=== PATIENT | female | born 1950 | race Caucasian/White ===

== ENCOUNTER → 2017-07-21 | Outpatient (CLI) | payer OTHER ==
[~2017-07-21] MED LIST: ALBU8.5H8 INH; ASPI-496 PO; ASPI-650 PO; DILT240C2 PO; DULO30CA2 PO; FURO20TA3 PO; OMEP20TA62 PO; POTA10TA6 PO; TRAZ50TA18 PO
== END | disposition home or self-care (01) ==
LOC: CFH 08:51
PROVIDERS: ATTEND Internal Medicine Cardiovascular Disease
DX: I08.3 Combined rheumatic disorders of mitral, aortic and tricuspid valves (principal); Q21.1 Atrial septal defect; I48.91 Unspecified atrial fibrillation
CPT/HCPCS: 93306

== ENCOUNTER 2017-10-29 09:35 | Emergency (ER) | payer OTHER ==
[~2017-10-29] VITALS: Ht 162.6 cm; Wt 80.4 kg
[2017-10-29 09:37] VITALS: BP 152/90
== END 2017-10-29 11:12 | disposition home or self-care (01) ==
LOC: ED 11:06
DX: G89.11 Acute pain due to trauma (principal); M25.511 Pain in right shoulder; K21.9 Gastro-esophageal reflux disease without esophagitis; X50.0XXA Overexertion from strenuous movement or load, initial encounter; Y93.89 Activity, other specified; Y92.89 Other specified places as the place of occurrence of the external cause; Y99.8 Other external cause status
CPT/HCPCS: 99284

== ENCOUNTER → 2018-05-31 | Outpatient (CLI) | payer MEDICARE, OTHER ==
[~2018-05-31] MED LIST changes: +TRAZ-136 PO; -TRAZ50TA18 PO
== END | disposition home or self-care (01) ==
LOC: CFH 14:35
PROVIDERS: ATTEND Nurse Practitioner Family
DX: S43.491A Other sprain of right shoulder joint, initial encounter (principal); M19.011 Primary osteoarthritis, right shoulder; M24.011 Loose body in right shoulder; M25.811 Other specified joint disorders, right shoulder; X58.XXXA Exposure to other specified factors, initial encounter; Y93.89 Activity, other specified; Y92.89 Other specified places as the place of occurrence of the external cause; Y99.8 Other external cause status

== ENCOUNTER → 2018-09-06 | Outpatient (CLI) | payer MEDICARE, OTHER ==
[~2018-09-06] MED LIST changes: -TRAZ-136 PO; +TRAZ50TA66 PO
== END | disposition home or self-care (01) ==
LOC: CFH 11:22
PROVIDERS: ATTEND Nurse Practitioner Family
DX: M47.897 Other spondylosis, lumbosacral region (principal); M48.55XA Collapsed vertebra, not elsewhere classified, thoracolumbar region, initial encounter for fracture; M99.13 Subluxation complex (vertebral) of lumbar region; M62.830 Muscle spasm of back
CPT/HCPCS: 72114

== ENCOUNTER → 2019-01-12 | Outpatient (CLI) | payer MEDICARE, OTHER ==
[2019-01-12 13:08] LABS: BASOPHILS # (AUTO) 0.02 x10^3/uL (0-0.1); BASOPHILS % (AUTO) 0 % (0-1); EOSINOPHILS # (AUTO) 0.01 x10^3/uL (0-0.4); EOSINOPHILS % (AUTO) 0 % (1-7); LYMPHOCYTES # (AUTO) 2.06 x10^3/uL (1-3.4); LYMPHOCYTES % (AUTO) 33 % (22-44); MD NO; MEAN CORPUSCULAR HEMOGLOBIN 29.5 pg (27.0-34.8); MEAN CORPUSCULAR HGB CONC 33.9 g/dL (32.4-35.8); MONOCYTES # (AUTO) 0.37 x10^3/uL (0.2-0.8); MONOCYTES % (AUTO) 6 % (2-9); NEUTROPHILS # (AUTO) 3.78 x10^3/uL (1.8-6.8); NEUTROPHILS % (AUTO) 60 % (42-75); PLATELET COUNT 235 x10^3/uL (130-400); RED BLOOD COUNT 5.06 x10^6/uL (3.82-5.3); RED CELL DISTRIBUTION WIDTH 13.5 % (9.6-15.2)
[2019-01-12 13:15] LABS: ALANINE AMINOTRANSFERASE 25 U/L (12-78); ALBUMIN 3.9 g/dL (3.4-5.0); ANION GAP 5 mmol/L (5-15); CALCIUM 8.8 mg/dL (8.5-10.1); CHLORIDE 107 mmol/L (98-107)
[2019-01-12 13:18] LABS: ALKALINE PHOSPHATASE 109 U/L (45-117); BILIRUBIN,TOTAL 0.6 mg/dL (0.2-1.0); CREATININE 0.81 mg/dL (0.55-1.02); TOTAL PROTEIN 7.1 g/dL (6.4-8.2)
[2019-01-12 16:14] LABS: THYROID STIMULATING HORMONE 2.59 mIU/L (0.358-3.740)
== END | disposition home or self-care (01) ==
LOC: CFH 09:50
PROVIDERS: ATTEND Nurse Practitioner
DX: M80.08XA Age-related osteoporosis with current pathological fracture, vertebra(e), initial encounter for fracture (principal); Z79.899 Other long term (current) drug therapy
CPT/HCPCS: 36415; 77080; 80053; 82306; 83735; 83970; 84100; 84443; 85025

== ENCOUNTER 2019-04-24 10:04 | Outpatient (CLI) | payer MEDICARE, OTHER ==
[2019-04-24 12:49] LABS: BASOPHILS # (AUTO) 0.02 x10^3/uL (0-0.1); BASOPHILS % (AUTO) 0 % (0-1); EOSINOPHILS # (AUTO) 0.04 x10^3/uL (0-0.4); EOSINOPHILS % (AUTO) 1 % (1-7); LYMPHOCYTES # (AUTO) 1.92 x10^3/uL (1-3.4); LYMPHOCYTES % (AUTO) 29 % (22-44); MD NO; MEAN CORPUSCULAR HEMOGLOBIN 29.6 pg (27.0-34.8); MEAN CORPUSCULAR HGB CONC 33.2 g/dL (32.4-35.8); MEAN CORPUSCULAR VOLUME 89.4 fL (80-100); MEAN PLATELET VOLUME 8.4 fL (7.4-10.4); MONOCYTES % (AUTO) 6 % (2-9); NEUTROPHILS # (AUTO) 4.37 x10^3/uL (1.8-6.8); NEUTROPHILS % (AUTO) 65 % (42-75); PLATELET COUNT 248 x10^3/uL (130-400); RED BLOOD COUNT 5.05 x10^6/uL (3.82-5.3); RED CELL DISTRIBUTION WIDTH 13.6 % (9.6-15.2)
[2019-04-24 12:55] LABS: ALANINE AMINOTRANSFERASE 22 U/L (12-78); ALBUMIN 3.6 g/dL (3.4-5.0); ANION GAP 5 mmol/L (5-15); CALCIUM 8.5 mg/dL (8.5-10.1); CHLORIDE 111 mmol/L (98-107)
[2019-04-24 12:58] LABS: ALKALINE PHOSPHATASE 112 U/L (45-117); BILIRUBIN,TOTAL 0.4 mg/dL (0.2-1.0); CHOL/HDL RATIO 3.9; CHOLESTEROL, TOTAL 182 mg/dL (140-239); CREATININE 0.89 mg/dL (0.55-1.02); HDL CHOL % 26 % (28-40); HDL CHOLESTEROL (DIRECT) 47 mg/dL (40-60); LDL CHOLESTEROL,CALCULATED 115 mg/dL (54-169); LDL/HDL RATIO 2.4 (0.5-3.0); TOTAL PROTEIN 7.1 g/dL (6.4-8.2); TRIGLYCERIDES 101 mg/dL (50-200); VLDL CHOLESTEROL 20 mg/dL (0-25)
== END 2019-04-24 23:59 | disposition home or self-care (01) ==
LOC: CFH 10:04
PROVIDERS: ATTEND Internal Medicine Cardiovascular Disease
DX: E78.5 Hyperlipidemia, unspecified (principal); I34.0 Nonrheumatic mitral (valve) insufficiency; I48.2 Chronic atrial fibrillation; I50.22 Chronic systolic (congestive) heart failure; R73.9 Hyperglycemia, unspecified
CPT/HCPCS: 36415; 80053; 80061; 85025

== ENCOUNTER 2019-07-27 11:56 | Inpatient (IN) | payer MEDICARE, OTHER ==
[~2019-07-27] VITALS: Ht 162.6 cm; Wt 72.6 kg
--- NOTE | 2019-07-27 12:25 | NUR ---
PT PLACED ON ALL ROOM MONITORING. NEURO EXAM WNL, PT A/O X 4 BUT SLOW TO RESPOND AND CORRECTS SELF DURING RESPONSE TO QUESTIONS. PT DENIES ANY SX. PT ABLE TO AMBULATE WITH STEADY GAIT TO BR TO PROVIDE URINE SPECIMEN. URINE SENT TO LAB. WARM BLANKET PROVIDED, CALL LIGHT WITHIN REACH.
[2019-07-27] MEDS ORDERED: SODIUM CHLORIDE FLUSH 10ML SYR IVF ONE (12:30)
[2019-07-27 12:46] LABS: MICROSCOPIC NOT IND
[2019-07-27 12:48] LABS: BASOPHILS # (AUTO) 0.02 x10^3/uL (0-0.1); BASOPHILS % (AUTO) 0 % (0-1); EOSINOPHILS # (AUTO) 0.06 x10^3/uL (0-0.4); EOSINOPHILS % (AUTO) 1 % (1-7); LYMPHOCYTES # (AUTO) 2.37 x10^3/uL (1-3.4); LYMPHOCYTES % (AUTO) 35 % (22-44); MD NO; MEAN CORPUSCULAR HEMOGLOBIN 29.6 pg (27.0-34.8); MEAN CORPUSCULAR HGB CONC 32.8 g/dL (32.4-35.8); MEAN CORPUSCULAR VOLUME 90.3 fL (80-100); MEAN PLATELET VOLUME 8.6 fL (7.4-10.4); MONOCYTES # (AUTO) 0.52 x10^3/uL (0.2-0.8); MONOCYTES % (AUTO) 8 % (2-9); NEUTROPHILS # (AUTO) 3.77 x10^3/uL (1.8-6.8); NEUTROPHILS % (AUTO) 56 % (42-75); PLATELET COUNT 229 x10^3/uL (130-400); RED BLOOD COUNT 4.83 x10^6/uL (3.82-5.3); RED CELL DISTRIBUTION WIDTH 13.4 % (9.6-15.2)
[2019-07-27 12:48] LABS: CULTURE INDICATED? NO
[2019-07-27 13:00] LABS: ALBUMIN 3.8 g/dL (3.4-5.0); ANION GAP 6 mmol/L (5-15); CALCIUM 8.5 mg/dL (8.5-10.1); CHLORIDE 110 mmol/L (98-107)
[2019-07-27 13:07] LABS: CREATININE 0.75 mg/dL (0.55-1.02); TROPONIN I < 0.015 ng/mL (0.000-0.045)
[2019-07-27 13:08] LABS: SALICYLATE LEVEL < 1.7 mg/dL (2.8-20.0)
--- NOTE | 2019-07-27 14:23 | NUR ---
PT BACK FROM MRI, NO CHANGE IN SX.
[2019-07-27] MEDS ORDERED: ASPIRIN 81 MG TABLET CHEW ONE (14:37)
[2019-07-27] MEDS ORDERED: ASPIRIN 81 MG TABLET CHEW PO ONE (15:00)
[2019-07-27] MEDS ORDERED: OMNIPAQUE 350 MG/ML, 100ML BOTTLE ONE (15:37)
[2019-07-27 15:51] LABS: INTERNATIONAL NORMALIZED RATIO 1.03 (0.93-1.1); PROTHROMBIN TIME 10.8 Seconds (9.6-11.5)
--- NOTE | 2019-07-27 15:58 | NUR ---
REPORT TO ANANT SHERMAN, PT READY FOR TRANSPORT TO FLOOR.
[2019-07-27] MEDS ORDERED: APIXABAN 5 MG TABLET PO ONE (16:00)
[2019-07-27] MEDS ORDERED: ONDANSETRON ODT 4 MG PO PRN (16:30)
[2019-07-27] MEDS ORDERED: ONDANSETRON 2MG/ML, 2ML IVPush PRN (16:30)
[2019-07-27 16:35] VITALS: BP 154/96
[2019-07-27 19:16] VITALS: BP 150/95
[2019-07-27] MEDS: APIXABAN 5 MG TABLET PO SCH (21:01)
[2019-07-28 01:05] VITALS: BP 120/83
[2019-07-28 04:21] VITALS: BP 160/102
[2019-07-28 05:53] LABS: BASOPHILS # (AUTO) 0.03 x10^3/uL (0-0.1); BASOPHILS % (AUTO) 1 % (0-1); EOSINOPHILS # (AUTO) 0.04 x10^3/uL (0-0.4); EOSINOPHILS % (AUTO) 1 % (1-7); LYMPHOCYTES # (AUTO) 2.41 x10^3/uL (1-3.4); LYMPHOCYTES % (AUTO) 36 % (22-44); MD NO; MEAN CORPUSCULAR HEMOGLOBIN 29.6 pg (27.0-34.8); MEAN CORPUSCULAR HGB CONC 33.3 g/dL (32.4-35.8); MEAN CORPUSCULAR VOLUME 88.8 fL (80-100); MEAN PLATELET VOLUME 8.8 fL (7.4-10.4); MONOCYTES # (AUTO) 0.48 x10^3/uL (0.2-0.8); MONOCYTES % (AUTO) 7 % (2-9); NEUTROPHILS # (AUTO) 3.72 x10^3/uL (1.8-6.8); NEUTROPHILS % (AUTO) 56 % (42-75); PLATELET COUNT 229 x10^3/uL (130-400); RED BLOOD COUNT 5.34 x10^6/uL (3.82-5.3); RED CELL DISTRIBUTION WIDTH 13.6 % (9.6-15.2)
[2019-07-28 06:06] LABS: ALBUMIN 3.8 g/dL (3.4-5.0); ANION GAP 7 mmol/L (5-15); CALCIUM 8.7 mg/dL (8.5-10.1); CHLORIDE 106 mmol/L (98-107)
[2019-07-28 06:10] LABS: ALANINE AMINOTRANSFERASE 21 U/L (12-78); ALKALINE PHOSPHATASE 105 U/L (45-117); BILIRUBIN,TOTAL 0.7 mg/dL (0.2-1.0); CHOLESTEROL, TOTAL 186 mg/dL (140-239); CREATININE 0.86 mg/dL (0.55-1.02); HDL CHOL % 25 % (28-40); HDL CHOLESTEROL (DIRECT) 46 mg/dL (40-60); LDL CHOLESTEROL,CALCULATED 118 mg/dL (54-169); LDL/HDL RATIO 2.6 (0.5-3.0); TOTAL PROTEIN 7.2 g/dL (6.4-8.2); TRIGLYCERIDES 111 mg/dL (50-200); VLDL CHOLESTEROL 22 mg/dL (0-25)
[2019-07-28 08:34] VITALS: BP 125/80
[2019-07-28] MEDS: APIXABAN 5 MG TABLET PO SCH (08:36)
[2019-07-28] MEDS ORDERED: OMEPRAZOLE 20 MG CAPSULE.DR PO SCH (09:00)
[2019-07-28] MEDS ORDERED: DILTIAZEM 5 MG/ML, 5ML IVPush ONE (09:00)
[2019-07-28] MEDS ORDERED: DILTIAZEM 240 MG CAP.ER.24H PO SCH (09:00)
[2019-07-28] MEDS ORDERED: ASPIRIN 81 MG TABLET CHEW PO/NG SCH (09:00)
--- NOTE | 2019-07-28 10:20 | NUR ---
REC REGULAR/THIN LIQUIDS; STRAWS OK, MEDS TOLERATED, SEATED UPRIGHT AT 90 DEGREES FOR PO INTAKE. Addendum: 07/28/19 at 1020 by Rhea MCDONALD Amended: Links added.
[2019-07-28 12:59] VITALS: BP 137/93
[2019-07-28] MEDS ORDERED: ATOR40TA78 PO (16:11)
[2019-07-28] MEDS ORDERED: APIX5TAB PO (16:11)
[2019-07-28] MEDS ORDERED: FLU VACC QS2019-20 36MOS UP/PF 0.5 ML IM-VACC ONE (16:30)
[2019-07-28 16:45] VITALS: BP 139/88
== END 2019-07-28 17:20 | disposition home or self-care (01) | DRG 64 ==
LOC: ED 15:04 → EDIP 15:05 → ED 15:17 → 4EST 16:20 → DCLOUNGE 07-28 17:00
PROVIDERS: ADMIT Internal Medicine; ATTEND Internal Medicine
DX: I63.40 Cerebral infarction due to embolism of unspecified cerebral artery (principal); G93.41 Metabolic encephalopathy; I61.1 Nontraumatic intracerebral hemorrhage in hemisphere, cortical; I61.4 Nontraumatic intracerebral hemorrhage in cerebellum; D68.69 Other thrombophilia; Q21.1 Atrial septal defect; I50.42 Chronic combined systolic (congestive) and diastolic (congestive) heart failure; G25.81 Restless legs syndrome; G47.00 Insomnia, unspecified; I08.1 Rheumatic disorders of both mitral and tricuspid valves; I11.0 Hypertensive heart disease with heart failure; I48.0 Paroxysmal atrial fibrillation; K21.9 Gastro-esophageal reflux disease without esophagitis; M79.7 Fibromyalgia; Z80.52 Family history of malignant neoplasm of bladder; Z81.8 Family history of other mental and behavioral disorders; Z82.3 Family history of stroke; Z82.49 Family history of ischemic heart disease and other diseases of the circulatory system; Z90.710 Acquired absence of both cervix and uterus; Z90.49 Acquired absence of other specified parts of digestive tract
CPT/HCPCS: 36415; 70450; 70496; 70498; 70551; 71045; 80048; 80053; 80061; 80307; 81003; 82040; 82140; 84439; 84443; 84484; 85025; 85610; 85730; 90686; 93005; G0378; Q9967

== ENCOUNTER 2021-01-13 14:31 | Emergency (ER) | payer MEDICARE ==
[~2021-01-13] VITALS: Ht 165.1 cm; Wt 76.0 kg
[~2021-01-13 14:31] MED LIST changes: +APIX5TAB PO; -ASPI-650 PO; +ASPI325T20 PO; +ATOR40TA78 PO
[2021-01-13 15:30] LABS: ALBUMIN 3.9 g/dL (3.4-5.0); ANION GAP 6 mmol/L (5-15); CHLORIDE 106 mmol/L (98-107)
[2021-01-13 15:31] LABS: BASOPHILS % (AUTO) 1 % (0-1); EOSINOPHILS % (AUTO) 0 % (1-7); LYMPHOCYTES % (AUTO) 25 % (22-44); MEAN CORPUSCULAR HEMOGLOBIN 29.5 pg (27.0-34.8); MEAN CORPUSCULAR HGB CONC 33.8 g/dL (32.4-35.8); MEAN PLATELET VOLUME 8.3 fL (7.4-10.4); MONOCYTES % (AUTO) 9 % (2-9); NEUTROPHILS % (AUTO) 65 % (42-75); PLATELET COUNT 246 x10^3/uL (130-400); RED CELL DISTRIBUTION WIDTH 14.1 % (9.6-15.2)
[2021-01-13 15:32] LABS: MD NO
[2021-01-13 15:36] LABS: ALANINE AMINOTRANSFERASE 23 U/L (12-78); ALKALINE PHOSPHATASE 74 U/L (45-117); BILIRUBIN,TOTAL 0.5 mg/dL (0.2-1.0); CREATININE 1.11 mg/dL (0.55-1.02); TOTAL PROTEIN 7.6 g/dL (6.4-8.2); TROPONIN I < 0.015 ng/mL (0.000-0.045)
--- NOTE | 2021-01-13 17:34 | NUR ---
Chung RN: pt from lobby to room 28
--- NOTE | 2021-01-13 17:59 | NUR ---
PT BIB FRIEND VIA POV. PER PT SHE HAD CP UNDER BILAT BREAST THAT WAS SHARP AND ONLY LASTED A FEW SECONDS AT 0400 TODAY. SHE THEN FELTED LIGHTHEADED AT WORK LATER IN THE DAY AND DECIDED TO COME TO ED. PT HAS HX OF AFIB, TAKES ELIQUIS EVERY DAY. PT RESTING IN RGREEN POND, MONITORING IN PLACE, EKG DONE IN TRIAGE, FRIEND AT BEDSIDE, DARLENE AT THIS TIME, PT STATES ALL SYMPTOMS HAVE SINCE RESOLVED, WCTM.
[2021-01-13] MEDS ORDERED: HYDROcodone/APAP 5/325 TABLET PO ONE (19:00)
[2021-01-13] MEDS ORDERED: HYDROcodone/APAP 5/325 TABLET ONE (19:05)
[2021-01-13 19:18] VITALS: BP 140/78
== END 2021-01-13 19:53 | disposition home or self-care (01) ==
LOC: ED 19:45
DX: R07.89 Other chest pain (principal); R53.1 Weakness; R06.02 Shortness of breath; I48.91 Unspecified atrial fibrillation; K21.9 Gastro-esophageal reflux disease without esophagitis; Z86.73 Personal history of transient ischemic attack (TIA), and cerebral infarction without residual deficits; Z90.49 Acquired absence of other specified parts of digestive tract; Z90.710 Acquired absence of both cervix and uterus
CPT/HCPCS: 36415; 71045; 80053; 84484; 85025; 93005; 99285

== ENCOUNTER 2021-03-04 08:11 | Emergency (ER) | payer MEDICARE ==
[~2021-03-04] VITALS: Ht 162.6 cm; Wt 75.6 kg
[2021-03-04 08:50] LABS: BASOPHILS % (AUTO) 1 % (0-1); EOSINOPHILS % (AUTO) 1 % (1-7); LYMPHOCYTES % (AUTO) 30 % (22-44); MEAN CORPUSCULAR HEMOGLOBIN 29.8 pg (27.0-34.8); MEAN CORPUSCULAR HGB CONC 33.9 g/dL (32.4-35.8); MEAN PLATELET VOLUME 8.4 fL (7.4-10.4); MONOCYTES % (AUTO) 8 % (2-9); NEUTROPHILS % (AUTO) 60 % (42-75); PLATELET COUNT 230 x10^3/uL (130-400); RED BLOOD COUNT 5.27 x10^6/uL (3.82-5.3); RED CELL DISTRIBUTION WIDTH 14.1 % (9.6-15.2)
[2021-03-04 08:51] LABS: MD NO
[2021-03-04 08:59] LABS: ALBUMIN 3.7 g/dL (3.4-5.0); CALCIUM 8.6 mg/dL (8.5-10.1); CHLORIDE 109 mmol/L (98-107); CREATININE 0.95 mg/dL (0.55-1.02)
[2021-03-04 09:03] LABS: TROPONIN I < 0.015 ng/mL (0.000-0.045)
[2021-03-04 09:15] LABS: ANION GAP 3 mmol/L (5-15)
--- NOTE | 2021-03-04 09:42 | NUR ---
creative manager: pt from lobby to room 17
--- NOTE | 2021-03-04 09:49 | NUR ---
ASSUMED CARE OF PT. SHE STATES SHE HAS BEEN UNABLE TO SLEEP SINCE WEDNESDAY, SOME MILD CONFUSION, NAUSEA AND ANXIETY OVER PAST COUPLE OF DAYS. PT PLACED IN GOWN, CT SHOWED UP TO TAKE PT BACK.
--- NOTE | 2021-03-04 10:14 | NUR ---
NO NEED TO VOID PER PT "I JUST WENT". SHE IS AWARE WE NEED A URINE SAMPLE. VSS, PT ON MONITOR. NADN. CLARK BEDSIDE
[2021-03-04] MEDS ORDERED: LORazepam 1MG TABLET ONE (10:28)
[2021-03-04] MEDS ORDERED: LORazepam 1MG TABLET PO ONE (10:30)
--- NOTE | 2021-03-04 11:04 | NUR ---
PT UP TO BATHROOM AND BACK W/ LOCKSTITCH HEMMER NO INCIDENT. PT VOIDED SMALL AMOUNT, SENT TO LAB TO SEE IF IT IS ENOUGH. NADN. CALL LIGHT W/IN REACH.
[2021-03-04 11:15] LABS: MICROSCOPIC NOT IND
--- NOTE | 2021-03-04 11:17 | NUR ---
PT SLEEPING, BEDRAIL UP X2, DAUGHTER BEDSIDE. VSS, NADN. CALL LIGHT W/IN REACH.
[2021-03-04 12:08] VITALS: BP 139/94
--- NOTE | 2021-03-04 12:09 | NUR ---
Patient/Caregiver given discharge instructions and they have confirmed that they understand the instructions. Patient ambulatory with steady gait.
== END 2021-03-04 12:19 | disposition home or self-care (01) ==
LOC: ED 10:29
DX: F41.1 Generalized anxiety disorder (principal); R11.0 Nausea; R51.9 Headache, unspecified; I48.91 Unspecified atrial fibrillation; K21.9 Gastro-esophageal reflux disease without esophagitis; Z86.73 Personal history of transient ischemic attack (TIA), and cerebral infarction without residual deficits; Z90.49 Acquired absence of other specified parts of digestive tract
CPT/HCPCS: 36415; 70450; 80048; 81003; 82040; 84484; 85025; 93005; 99285

== ENCOUNTER → 2021-05-14 | Outpatient (CLI) | payer MEDICARE ==
[~2021-05-14] MED LIST changes: +CALC-780 PO; +HYDR50TA99 PO; +MEMA5TAB PO; +ROSU5TAB PO; +UBID30CA9 PO
== END | disposition home or self-care (01) ==
LOC: CVU 08:44
PROVIDERS: ATTEND Internal Medicine Cardiovascular Disease
DX: I08.0 Rheumatic disorders of both mitral and aortic valves (principal); I48.20 Chronic atrial fibrillation, unspecified; R60.9 Edema, unspecified
CPT/HCPCS: 93306; 93970